=== PATIENT | male | born 2005 | race Caucasian/White ===

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

== ENCOUNTER 2024-09-02 19:43 | Emergency (ER) | payer BC, OTHER ==
[~2024-09-02] VITALS: Ht 180.3 cm; Wt 90.7 kg
[2024-09-02 19:50] VITALS: BP 135/90
== END 2024-09-02 22:00 | disposition home or self-care (01) ==
LOC: ER 19:43
DX: S01.111A Laceration without foreign body of right eyelid and periocular area, initial encounter (principal); F17.200 Nicotine dependence, unspecified, uncomplicated; Y04.8XXA Assault by other bodily force, initial encounter
CPT/HCPCS: 70480; 99284-25